=== PATIENT | male | born 1995 | race Caucasian/White ===

== ENCOUNTER 2016-03-23 11:05 | Emergency (ER) | payer SELFPAY | END 2016-03-23 14:02 | disposition left against medical advice (07) | LOC: D.ER 11:05 | DX: K59.00 Constipation, unspecified (principal) ==

== ENCOUNTER 2017-08-12 16:20 | Emergency (ER) | payer SELFPAY ==
[~2017-08-12] VITALS: Ht 170.2 cm; Wt 95.5 kg
[2017-08-12 16:41] VITALS: Ht 170.2 cm; Wt 95.5 kg
[2017-08-12] MEDS ORDERED: HYDROCODON-ACE1 EAC7 PO (18:01)
[2017-08-12 18:24] VITALS: BP 136/68
== END 2017-08-12 18:26 | disposition home or self-care (01) ==
LOC: D.ER 16:20
DX: S93.402A Sprain of unspecified ligament of left ankle, initial encounter (principal); X50.1XXA Overexertion from prolonged static or awkward postures, initial encounter; Y93.89 Activity, other specified; Y92.019 Unspecified place in single-family (private) house as the place of occurrence of the external cause

== ENCOUNTER 2018-03-29 22:14 | Inpatient (IN) | payer MEDICAID ==
[~2018-03-29] VITALS: Ht 170.2 cm; Wt 81.8 kg
--- NOTE | 2018-03-29 01:10 | NUR ---
RECIEVED PT FROM ER VIA HOSPITAL BED V/S WNL , PT ON RA NO IV AT THIS TIME FAMILY @BEDSIDE CL ASSESSMENT DONE CL IN REACH WILL CONT TO MONITOR
[~2018-03-29 22:14] MED LIST: HYDROCODON-ACE1 EAC7 PO
[2018-03-29] MEDS ORDERED: ELIQUIS5 MG PO (22:24)
[2018-03-29 22:52] LABS: BASOPHILS 0.2 % (0-2); HEMOGLOBIN 15.5 g/dL (13.5-17.5); IMMATURE GRANULOCYTES 0.2 % (0-5); LYMPHOCYTES 29.3 % (15-50); MCH 31.3 pg (26.0-34.0); MCHC 35.2 g/dL (31.0-37.0); MCV 88.7 fL (80.0-100.0); MEAN PLATELET VOLUME 9.6 fL (7.4-10.4); NEUTROPHILS 61.3 % (40-80); PLATELET COUNT 306 10x3/uL (130-400); RBC 4.96 10x6/uL (4.20-6.10); RDW 12.3 % (11.5-14.5); WBC 12.4 10x3/uL (4.8-10.8)
[2018-03-29 23:02] LABS: APTT 36.2 SECONDS (22.8-39.4); INR 1.23 (0.85-1.17)
[2018-03-29 23:06] LABS: ALBUMIN 3.7 g/dL (3.4-5.0); ALKALINE PHOSPHATASE 115 U/L (46-116); ALT (SGPT) 17 U/L (10-68); BILIRUBIN - TOTAL 0.91 mg/dL (0.2-1.3); CALC OSMOLALITY 278 mosm/kg (275-300); CALCIUM 8.7 mg/dL (8.5-10.1); CARBON DIOXIDE 24.6 mmol/L (21.0-32.0); CHLORIDE - SERUM 104 mmol/L (98-107); CREATININE - SERUM 0.8 mg/dL (0.6-1.3); GLUCOSE 107 mg/dL (74-106); POTASSIUM - SERUM 3.9 mmol/L (3.5-5.1); PROTEIN - SERUM 7.6 g/dL (6.4-8.2); SODIUM 140 mmol/L (136-145); UREA NITROGEN 13 mg/dL (7-18); eGFR NON AFRICAN AMERICAN > 90 mL/min (90-120)
[2018-03-29 23:50] VITALS: BP 133/73
[2018-03-30] VITALS (8 sets, daily range): BP systolic 103–138; BP diastolic 67–80; Ht 170.2 cm; Wt 81.8 kg
--- NOTE | 2018-03-30 01:23 | NUR ---
TECHNICAL TRAINING COORDINATOR ASSESSMENT COMPLETED. VSS. SR PER CM HR 83. NO IV. LUNGS CTA. PALPABLE PERIPHERAL PULSES. NO INCREASED TEMP TO BACK OF R LEG. STATES PAIN NOW 5/10. INFORMED BEDREST FOR ACTIVITY. STATED UNDERSTANDING. SR UP X2, CALL LIGHT WITHIN REACH.
--- NOTE | 2018-03-30 04:30 | NUR ---
ND C/O OF PAIN IN LEG CALL HOT METAL MIXER OPERATOR HELPER ER DOCTOR FRANSISCO HE ORDER MORPHINE 4MG IV Q4 HRS PRN , ZOFRAN 4MG IV Q4HRS PRN , ORDERS IN MEDS GIVEN PT TOLERATED WELL CL IN REACH WILL CONT TO MONITOR ,IV IN RT WRIST 20N GAUGE
--- NOTE | 2018-03-30 07:00 | NUR ---
RECEIVED BEDSIDE SHIFT REPORT. ASSUMED CARE OF PATIENT. PATIENT RESTING IN BED WITH EYES CLOSED, EASILY AROUSED. CALL LIGHT WITHIN REACH. PATIENT WITH FEMALE VISITOR RESTING WITH EYES CLOSED IN BED WITH PATIENT. NO DISTRESS. SB, HEARTRATE 58 ON TELEMETRY.
--- NOTE | 2018-03-30 07:49 | NUR ---
PATIENT REQUESTING PAIN MEDICATION, TOO EARLY TO ADMINISTER. EXPLAIN TO PATIENT THAT PAIN MEDICATION NOT AVAILABLE UNTIL 0900. PATIENT VERBALIZED HIS UNDERSTANDING.
--- NOTE | 2018-03-30 09:05 | NUR ---
MEDICATED FOR PAIN AT THIS TIME.
--- NOTE | 2018-03-30 09:43 | NUR ---
MARKO ESPARZA PAGED TO QUESTION ABOUT SENDING CONSULT FOR . PATIENT WAS TOLD THAT A BLOOD SPECIALIST WOULD COME IN AND REVIEW HIS LAB TEST TO SEE HOW WE WILL KEEP PATIENT FROM GETTING CLOTS. EXPLAINED TO ISAIAS THAT IR WAS CONSULTED BUT NOT . RECEIVED NEW ORDERS FOR CONSULT.
--- NOTE | 2018-03-30 11:45 | NUR ---
PATIENT RESTING IN BED WITH EYES OPEN. CALL LIGHT WITHIN REACH. PATIENT WITH MALE VISITOR AT BEDSIDE. NO DISTRESS. DENIES NEEDS AT THIS TIME.
--- NOTE | 2018-03-30 14:46 | NUR ---
MEDICATED FOR PAIN AT THIS TIME. NO DISTRESS.
--- NOTE | 2018-03-30 19:30 | NUR ---
RECEIVED REPORT, WILL ASSUME CARE OF PT, PT IS EATING A STEAK AND BAKED POT, DENIES ANY NEEDS AT THIS TIME, BED IS LOW, SRX2, CALL LIGHT IN REACH, WILL CONTINUE PLAN OF CARE
--- NOTE | 2018-03-30 20:14 | NUR ---
PT COMPLAINS OF PAIN, GAVE MORHINE ORDER
[2018-03-31 03:55] VITALS: BP 107/55
--- NOTE | 2018-03-31 04:44 | NUR ---
ASSESSMENT PER ICT SALES REPRESENTATIVE REVIEWED AND THIS RN IN AGREEMENT. MONITOR AND CPOC.
[2018-03-31 04:46] LABS: BASOPHILS 0.3 % (0-2); EOSINOPHILS 2.9 % (0-7); HEMATOCRIT 42.2 % (42.0-54.0); HEMOGLOBIN 14.3 g/dL (13.5-17.5); IMMATURE GRANULOCYTES 0.1 % (0-5); LYMPHOCYTES 39.6 % (15-50); MCH 30.6 pg (26.0-34.0); MCHC 33.9 g/dL (31.0-37.0); MCV 90.2 fL (80.0-100.0); MEAN PLATELET VOLUME 9.7 fL (7.4-10.4); MONOCYTES 7.1 % (2-11); PLATELET COUNT 284 10x3/uL (130-400); RBC 4.68 10x6/uL (4.20-6.10); RDW 12.5 % (11.5-14.5)
[2018-03-31 05:12] LABS: ALBUMIN 3.5 g/dL (3.4-5.0); ALKALINE PHOSPHATASE 91 U/L (46-116); ALT (SGPT) 18 U/L (10-68); BILIRUBIN - TOTAL 0.72 mg/dL (0.2-1.3); CALC OSMOLALITY 281 mosm/kg (275-300); CARBON DIOXIDE 25.1 mmol/L (21.0-32.0); CHLORIDE - SERUM 105 mmol/L (98-107); CREATININE - SERUM 0.7 mg/dL (0.6-1.3); GLUCOSE 96 mg/dL (74-106); POTASSIUM - SERUM 4.2 mmol/L (3.5-5.1); PROTEIN - SERUM 6.7 g/dL (6.4-8.2); SODIUM 141 mmol/L (136-145); UREA NITROGEN 16 mg/dL (7-18); eGFR NON AFRICAN AMERICAN > 90 mL/min (90-120)
--- NOTE | 2018-03-31 07:15 | NUR ---
RECEIVED BEDSIDE SHIFT REPORT. ASSUMED CARE OF PATIENT. CALL LIGHT WITHIN REACH. RESP EVEN AND UNLABORED. FEMALE VISITOR RESTING IN BED WITH PATIENT. NO DISTRESS.
--- NOTE | 2018-03-31 07:39 | NUR ---
SCD'S NOT APPLIED ORDERED DUE TO CONTRAINDICATED WITH DVT AND PATIENT IS ON LOVENOX AT THIS TIME.
[2018-03-31 08:50] VITALS: BP 120/82
--- NOTE | 2018-03-31 11:55 | NUR ---
RESTING IN BED, FEMALE VISITOR AT BEDSIDE. NO DISTRESS. FRESH ICE WATER PROVIDED. CALL LIGHT WITHIN REACH.
[2018-03-31 12:21] VITALS: BP 126/76
--- NOTE | 2018-03-31 13:51 | MORECARE ---
CASE MANAGEMENT DISCHARGE SUMMARY PATIENT: ANNAMARIE DESAI UNIT: [id number] ADM DATE: 03/30/18 AGE: 23 : 94 SEX: M ROOM/BED: D.2113 AUTHOR: ARIEL OLIVAREZ PHYSICIAN: REFERRING PHYSICIAN: AUSTEN SINGH MD DATE OF SERVICE: 03/31/18 Discharge Plan Patient Name: ANNAMARIE DESAI [facility] : 1995 Planned Disposition: Anticipated Discharge Date: Discharge Date: Expected LOS: Initial Reviewer: [id number] Initial Review Date: 03/31/2018 Generated: 03/31/18 2:51 pm DCPIA - Discharge Planning Initial Assessment Updated by [email or web address]: Karoline Jamil on 03/31/18 1:49 pm * Is the patient Alert and Oriented? Yes * PCP NONE * Pharmacy [facility] [address] * Preadmission Environment Home with Family * ADLs Independent * Equipment Walker Wheelchair * List name and contact numbers for known caregivers / representatives who currently or will assist patient after discharge: RODRICK STEWART, AUNT, OR HER WORK NUMBER IS [phone] * Verbal permission to speak to the caregivers and representatives has been obtained from the patient. Yes * Community resources currently utilized None * Additional services required to return to the preadmission environment? Yes * Can the patient safely return to the preadmission environment? Yes * Has this patient been hospitalized within the prior 30 days at any hospital? No Patient Name: ANNAMARIE DESAI Page 41500 at 1351 All edits/amendments must be made on the electronic document DICTATION DATE: 03/31/18 1351 SOFT WORK WRAPPER LAYER AND EXAMINER: BANG 03/31/18 1351 RPT#: [id number] DC DATE: STATUS: ADM IN [facility] [address] [place] [address] END OF REPORT
--- NOTE | 2018-03-31 14:14 | MORECARE ---
CASE MANAGEMENT DISCHARGE SUMMARY PATIENT: ANNAMARIE DESAI UNIT: [id number] ADM DATE: 03/30/18 AGE: 23 : 94 SEX: M ROOM/BED: D.2113 AUTHOR: JUANISDOC PHYSICIAN: REFERRING PHYSICIAN: AUSTEN SINGH MD DATE OF SERVICE: 03/31/18 Discharge Plan Patient Name: ANNAMARIE DESAI Facility: [facility]:[place] : 1995 Planned Disposition: Anticipated Discharge Date: Discharge Date: Expected LOS: Initial Reviewer: [email or web address] Initial Review Date: 03/31/2018 Generated: 03/31/18 3:14 pm DCPIA - Discharge Planning Initial Assessment Updated by [email or web address]: Karoline Jamil on 03/31/18 1:49 pm * Is the patient Alert and Oriented? Yes * PCP NONE * Pharmacy [facility] [address] * Preadmission Environment Home with Family * ADLs Independent * Equipment Walker Wheelchair * List name and contact numbers for known caregivers / representatives who currently or will assist patient after discharge: AUNT BARRETT, OR HER WORK NUMBER IS [phone] * Verbal permission to speak to the caregivers and representatives has been obtained from the patient. Yes * Community resources currently utilized None * Additional services required to return to the preadmission environment? Yes * Can the patient safely return to the preadmission environment? Yes * Has this patient been hospitalized within the prior 30 days at any hospital? No External Providers External Provider: [facility] Next Contact Date: Service Request Date: Service Type: Resolution: Reviewer: Comments: External Provider: [facility] Next Contact Date: Service Request Date: Service Type: Resolution: Reviewer: Comments: Coverage Notice Reviewer: [id number] - Karoline Jamil Notice Issued Date-Time: 03/31/2018 14:11 Notice Type: Patient Choice Letter Notice Delivered To: Family Member Relationship to Patient: Aunt Concrete Technician Name: RODRICK STEWART Delivery Method: HAND - Hand Delivered Sweta Days: Prior Verbal Notification: Recipient Understood Notice: Yes Recipient Signature: Yes Med Rec Note Co-signed by Attending: Coverage Notice Comment: [facility] PATIENT. Last DP export: 03/31/18 12:51 p Patient Name: ANNAMARIE DESAI Page 67050 at 1414 All edits/amendments must be made on the electronic document DICTATION DATE: 03/31/181413 CHIP MIXING MACHINE OPERATOR: BANG 03/31/181413 RPT#: [id number] DC DATE: STATUS: ADM IN [facility] [address] [place] [address] END OF REPORT
--- NOTE | 2018-03-31 14:22 | MORECARE ---
CASE MANAGEMENT DISCHARGE SUMMARY PATIENT: ANNAMARIE DESAI UNIT: [id number] ADM DATE: 03/30/18 AGE: 23 : 94 SEX: M ROOM/BED: D.2113 AUTHOR: JUANIS,DOC PHYSICIAN: REFERRING PHYSICIAN: AUSTEN SINGH MD DATE OF SERVICE: 03/31/18 Discharge Plan Patient Name: ANNAMARIE DESAI Facility: [facility]:[place] : 1995 Planned Disposition: Anticipated Discharge Date: Discharge Date: Expected LOS: Initial Reviewer: [email or web address] Initial Review Date: 03/31/2018 Generated: 03/31/18 3:21 pm Comments DCP- Discharge Planning Updated by [email or web address]: Karoline Jamil on 03/31/18 1:[address] Patient Name: ANNAMARIE DESAI Admission Status: ER Accout number: [id number] Admission Date: 03-30-2018 : 1995 Admission Diagnosis: Attending: AUSTEN SINGH Current LOS: 1 Anticipated DC Date: Planned Disposition: Primary Insurance: MEDICAID [place] Discharge Planning Comments: CM MET WITH PATIENT AND HIS AUNT RODRICK STEWART WHO HE LIVES WITH ABOUT DC PLANNING NEEDS. STATES HE JUST GOT ON MEDICAID AND DOESN'T HAVE A PCP YET, IS HOPING TO GET IN WITH DR. STONE. PATIENT STATES HAS WALKER AND WC AT HOME BUT NEEDS A SHOWER CHAIR. ALSO STATES NEEDS HH. PATIENT CHOICE FORM COMPLETED, PATIENT [facility]OSE [facility] 1ST, [facility] 2ND. [facility]OSE [facility] 1ST AND [facility] 2ND. CM SPOKE WITH DR. CONDON AND SHE WANTS US TO HELP HIM TO GET LOVENOX 80MG BID FOR 10 DOSES. I CALLED [facility] [address] BUT THEY COULDN'T TELL ME IF IT WAS COVERED BY MEDICAID UNTIL THEY HAD THE PRESCRIPTION. HIS AUNT RODRICK SAID IF WE NEEDED TO TALK TO HER TOMORROW TO CALL HER ON HER WORK PHONE AT [phone], AND HER CELL IS [phone]. ALSO, PHARMACY TOLD ME MEDICAID COULD TELL ME IF ITS COVERED BUT THEY ARE CLOSED TODAY. CM TO FOLLOW AND ASSIST NEEDED WITH DC PLANNING/NEEDS. UNSURE OF HIS DC DATE. Funds Development Director: Karoline Jamil DCPIA - Discharge Planning Initial Assessment Updated by [email or web address]: Karoline Loulou on 03/31/18 1:49 pm * Is the patient Alert and Oriented? Yes * PCP NONE * Pharmacy [facility] [address] * Preadmission Environment Home with Family * ADLs Independent * Equipment Walker Wheelchair * List name and contact numbers for known caregivers / representatives who currently or will assist patient after discharge: RODRICK STEWART, NOELT, OR HER WORK NUMBER IS [phone] * Verbal permission to speak to the caregivers and representatives has been obtained from the patient. Yes * Community resources currently utilized None * Additional services required to return to the preadmission environment? Yes * Can the patient safely return to the preadmission environment? Yes * Has this patient been hospitalized within the prior 30 days at any hospital? No Coverage Notice Reviewer: [id number] - Karoline Loulou Notice Issued Date-Time: 03/31/2018 14:11 Notice Type: Patient Choice Letter Notice Delivered To: Family Member Relationship to Patient: Aunt Crib Attendant Name: RODRICK STEWART Delivery Method: HAND - Hand Delivered Sweta Days: Prior Verbal Notification: Recipient Understood Notice: Yes Recipient Signature: Yes Med Rec Note Co-signed by Attending: Coverage Notice Comment: [facility] PATIENT. Last DP export: 03/31/18 1:14 p Patient Name: ANNAMARIE DESAI Page 47869 at 1422 All edits/amendments must be made on the electronic document DICTATION DATE: 03/31/181420 HAND MOUNTER: BANG 03/31/18 142 RPT#: [id number] DC DATE: STATUS: ADM IN [facility] [address] [place] [address] END OF REPORT
--- NOTE | 2018-03-31 14:49 | NUR ---
PATIENT RESTING IN BED. FAMILY AT BEDSIDE. FRESH ICE WATER PROVIDED. CALL LIGHT WITHIN REACH. DENIES NEEDS AT THIS TIME. NO DISTRESS.
[2018-03-31 15:48] VITALS: BP 121/74
--- NOTE | 2018-03-31 18:30 | NUR ---
RESTING IN BED. NO DISTRESS. CALL LIGHT WITHIN REACH.
--- NOTE | 2018-03-31 19:30 | NUR ---
RECEIVED REPORT, WILL ASSUME CARE OF PT, PT IS GETTING READY TO GET IN SHOWER, DENIES ANY NEEDS AT THIS TIME, WILL CONTINUE PLAN OF CARE
[2018-03-31 19:55] VITALS: BP 163/93
--- NOTE | 2018-03-31 21:40 | NUR ---
COMPLAINS OF LEG PAIN, GAVE MORPHINE ORDER
[2018-03-31 23:50] VITALS: BP 129/76
[2018-04-01 03:43] VITALS: BP 124/71
--- NOTE | 2018-04-01 04:06 | NUR ---
REVIEW AND AGREEMENT WITH ASSESSMENT PER CHANNEL CEMENTER OUTSOLE MACHINE. PT RESTING IN BED WITH NO DISTRESS. MONITOR AND CPOC.
[2018-04-01 06:07] LABS: ALBUMIN 3.4 g/dL (3.4-5.0); ALKALINE PHOSPHATASE 96 U/L (46-116); ALT (SGPT) 15 U/L (10-68); BILIRUBIN - TOTAL 0.67 mg/dL (0.2-1.3); CALCIUM 8.8 mg/dL (8.5-10.1); CARBON DIOXIDE 24.9 mmol/L (21.0-32.0); CREATININE - SERUM 0.7 mg/dL (0.6-1.3); GLUCOSE 98 mg/dL (74-106); UREA NITROGEN 12 mg/dL (7-18); eGFR NON AFRICAN AMERICAN > 90 mL/min (90-120)
[2018-04-01 06:17] LABS: CALC OSMOLALITY 278 mosm/kg (275-300); CHLORIDE - SERUM 104 mmol/L (98-107); SODIUM 140 mmol/L (136-145)
[2018-04-01 06:40] LABS: POTASSIUM - SERUM 3.4 mmol/L (3.5-5.1)
[2018-04-01 07:42] LABS: BASOPHILS 0.3 % (0-2); EOSINOPHILS 2.5 % (0-7); HEMATOCRIT 41.8 % (42.0-54.0); HEMOGLOBIN 14.3 g/dL (13.5-17.5); IMMATURE GRANULOCYTES 0.1 % (0-5); LYMPHOCYTES 40.8 % (15-50); MCH 30.4 pg (26.0-34.0); MCHC 34.2 g/dL (31.0-37.0); MCV 88.7 fL (80.0-100.0); MONOCYTES 8.6 % (2-11); NEUTROPHILS 47.7 % (40-80); PLATELET COUNT 322 10x3/uL (130-400); RBC 4.71 10x6/uL (4.20-6.10); RDW 12.1 % (11.5-14.5); WBC 8.7 10x3/uL (4.8-10.8)
--- NOTE | 2018-04-01 07:52 | NUR ---
AM ROUNDS- PT RESTING COMFORTABLY IN BED, EASILY AROUSES TO VOICE. PT A/O X4, RESP EVEN AND NONLABORED ON RA. LT WRIST IV SL. PT DENIES ANY NEEDS AT THIS TIEM. CALL LIGHT IN REACH, NAD NOTED, WILL CONTINUE PLAN OF CARE.
[2018-04-01 08:27] VITALS: BP 120/78
[2018-04-01 11:10] LABS: INR 1.11 (0.85-1.17); PROTIME 13.8 SECONDS (11.6-15.0)
--- NOTE | 2018-04-01 11:27 | NUR ---
LOVENOX GIVEN ORDERED, ALSO GAVE 40MEQ OF K FOR LOW K OF 3.4. PT RESTING COMFORTABLY IN BED, DENIES ANY NEEDS AT THIS TIME. CALL LIGHT IN REACH, GIRLFRIEND IN THE BED WITH PT, NAD NOTED, CALL LIGHT IN REACH.
--- NOTE | 2018-04-01 11:36 | MORECARE ---
CASE MANAGEMENT DISCHARGE SUMMARY PATIENT: ANNAMARIE DESAI UNIT: [id number] ADM DATE: 03/30/18 AGE: 23 : [birth year] SEX: M ROOM/BED: D.2113 AUTHOR: JUANIS,DOC PHYSICIAN: REFERRING PHYSICIAN: AUSTEN SINGH MD DATE OF SERVICE: 04/01/18 Discharge Plan Patient Name: ANNAMARIE DESAI Facility: [facility]:[place] : 1995 Planned Disposition: Anticipated Discharge Date: Discharge Date: Expected LOS: Initial Reviewer: [email or web address] Initial Review Date: 03/31/2018 Generated: 04/01/18 12:36 pm Comments DCP- Discharge Planning Updated by [email or web address]: Nahid Mercedes on 04/01/18 10:[address] Patient Name: ANNAMARIE DESAI Encounter No: [id number] : 1995 Primary Insurance: MEDICAID [place] Anticipated DC Date: Planned Disposition: External Planned Provider: : DCP follow-up note: CM RECEIVED ORDER TO SEE IF PT CAN BE SEEN AT [facility] FOR LAB DRAWS, PRIMARY CARE AND COUMADIN MONITORING. CM CALLED [facility], LEFT DETAILED MESSAGE FOR [facility] DEPARTMENT AT [phone]. CM WAITING RETURN CALL FROM [facility], [place]. ERON Corona DCP- Discharge Planning Updated by [email or web address]: Karoline Jamil on 03/31/18 1:[address] Patient Name: ANNAMARIE DESAI Admission Status: ER Accout number: [id number] Admission Date: 03-30-2018 : 1995 Admission Diagnosis: Attending: AUSTEN SINGH Current LOS: 1 Anticipated DC Date: Planned Disposition: Primary Insurance: MEDICAID [place] Discharge Planning Comments: CM MET WITH PATIENT AND HIS AUNT RODRICK STEWART WHO HE LIVES WITH ABOUT DC PLANNING NEEDS. STATES HE JUST GOT ON MEDICAID AND DOESN'T HAVE A PCP YET, IS HOPING TO GET IN WITH DR. STONE. PATIENT STATES HAS WALKER AND WC AT HOME BUT NEEDS A SHOWER CHAIR. ALSO STATES NEEDS HH. PATIENT CHOICE FORM COMPLETED, PATIENT [facility]OSE [facility] 1ST, [facility] 2ND. CHOSE [facility] 1ST AND [facility] 2ND. CM SPOKE WITH DR. CONDON AND SHE WANTS US TO HELP HIM TO GET LOVENOX 80MG BID FOR 10 DOSES. I CALLED [facility] [address] BUT THEY COULDN'T TELL ME IF IT WAS COVERED BY MEDICAID UNTIL THEY HAD THE PRESCRIPTION. HIS AUNT RODRICK SAID IF WE NEEDED TO TALK TO HER TOMORROW TO CALL HER ON HER WORK PHONE AT [phone], AND HER CELL IS [phone]. ALSO, PHARMACY TOLD ME MEDICAID COULD TELL ME IF ITS COVERED BUT THEY ARE CLOSED TODAY. CM TO FOLLOW AND ASSIST NEEDED WITH DC PLANNING/NEEDS. UNSURE OF HIS DC DATE. Home Mortgage Disclosure Act Specialist: Karoline Jamil DCPIA - Discharge Planning Initial Assessment Updated by [email or web address]: Karoline Jamil on 03/31/18 1:49 pm * Is the patient Alert and Oriented? Yes * PCP NONE * [facility] [address] * Preadmission Environment Home with Family * ADLs Independent * Equipment Walker Wheelchair * List name and contact numbers for known caregivers / representatives who currently or will assist patient after discharge: RODRICK STEWART AUNKamille, OR HER WORK NUMBER IS [phone] * Verbal permission to speak to the caregivers and representatives has been obtained from the patient. Yes * Community resources currently utilized None * Additional services required to return to the preadmission environment? Yes * Can the patient safely return to the preadmission environment? Yes * Has this patient been hospitalized within the prior 30 days at any hospital? No Coverage Notice Reviewer: [id number] - Karoline Jamil Notice Issued Date-Time: 03/31/2018 14:11 Notice Type: Patient Choice Letter Notice Delivered To: Family Member Relationship to Patient: Aunt Deputy Sheriff/Investigator Name: RODRICK STEWART Delivery Method: HAND - Hand Delivered Sweta Days: Prior Verbal Notification: Recipient Understood Notice: Yes Recipient Signature: Yes Med Rec Note Co-signed by Attending: Coverage Notice Comment: [facility] PATIENT. Last DP export: 03/31/18 1:21 p Patient Name: ANNAMARIE DESAI Page 08393 at 1136 All edits/amendments must be made on the electronic document DICTATION DATE: 04/01/18 1136 LOGISTICS SUPPLY OFFICER: BANG 04/01/18 1136 RPT#: [id number] DC DATE: STATUS: ADM IN [facility] [address] [place] [address] END OF REPORT
[2018-04-01 13:34] VITALS: BP 135/86
--- NOTE | 2018-04-01 15:50 | NUR ---
PT HAD HEART MONITOR OFF, STATED THAT HE WAS TOLD THAT HE WOULD BE D/C TODAY. INFORMED PT THAT WE WERE STILL WAITING TO SEE IF [facility] COULD DO BLOOD DRAWS FOR PT TO CHECK INR LEVEL. INFOMRED PT THAT I WOULD PROBABLY BE TOMORROW BEFORE HE IS DISCHARGE. PT REFUSED TO PUT HEART MONITOR BACK ON. MONITOR TAKEN TO COMBUSTION ANALYST, WANDA.
--- NOTE | 2018-04-01 16:53 | MORECARE ---
CASE MANAGEMENT DISCHARGE SUMMARY PATIENT: ANNAMARIE DESAI UNIT: [id number] ADM DATE: 03/30/18 AGE: 23 : [birth year] SEX: M ROOM/BED: D.2113 AUTHOR: JUANIS,DOC PHYSICIAN: REFERRING PHYSICIAN: AUSTEN SINGH MD DATE OF SERVICE: 04/01/18 Discharge Plan Patient Name: ANNAMARIE DESAI Facility: [facility]:[place] : 1995 Planned Disposition: Anticipated Discharge Date: Discharge Date: Expected LOS: Initial Reviewer: [email or web address] Initial Review Date: 03/31/2018 Generated: 04/01/18 5:53 pm Comments DCP- Discharge Planning Updated by [email or web address]: Nahid Barrios on 04/01/18 3:[address] Patient Name: ANNAMARIE DESAI Encounter No: [id number] : 1995 Primary Insurance: MEDICAID [place] Anticipated DC Date: Planned Disposition: External Planned Provider: : DCP follow-up note: CM RECEIVED ORDER TO SEE IF PT CAN BE SEEN AT [facility] FOR LAB DRAWS, PRIMARY CARE AND COUMADIN MONITORING. CM CALLED [facility], LEFT DETAILED MESSAGE FOR [facility] OF REFERRALS DEPARTMENT AT [phone]. CM WAITING RETURN CALL FROM [facility]. Nahid Barrios, CASE MANAGEMENT Appended by Nahid Barrios on 04/01/2018 16:48 INJECTION MAINTENANCE TECHNICIAN: CM CALLED [facility], , SPOKE TO RECEPTIONISTS [facility] DID NOT RETURN CM CALL; RECEPTIONISTS INFORMED CM THAT PT WILL NEED TO HAVE [facility] ASSIGNED BY DEPARTMENT OF HUMAN SERVICES BEFORE ANY ARRANGEMENTS CAN BE MADE WITH THEM. CM CALLED [facility], . AFTER VERY LENGHTY HOLD, THE LINE WAS DISCONNECTED. CM MET WITH PT IN ROOM, PROVIDED UPDATE, CALLED [facility], ; AFTER VERY LENGHTY HOLD, THE LINE WAS DISCONNECTED.CM WENT ONLINE TO [facility] AND ASSIGNED PT'S DOCTOR [facility] [place] [facility] WEBS[facility] MESSAGE STATES THAT THE ASSIGNMENT CAN TAKE UP TO THREE DAYS TO TAKE AFFECT AND TO CALL [facility] IF PT NEEDS TO SEE PRIMARY CARE SOONER. CM NOTIFIED PT WHO WILL CALL HIMSELF. CM CALLED [facility], THREE MORE TIMES, AFTER VERY LENGHTY HOLDS, THE LINE WAS DISCONNECTED TWICE AND THE THIRD TIME WAS FOR APPROXIMATELY 4O MINUTES WITH ONLY PIANO MUSIC AND NO CHIEF OF VITAL STATISTICS. CM WILL CALL [facility] AGAIN TOMORROW TO FIND OUT IF THE PCP ASSIGNMENT WENT THROUGH THE [facility] WEBSITE. NAHID BARRIOS, CASE MANAGEMENT DCP- Discharge Planning Updated by [id number]: Karoline Jamil on 03/31/18 1:[address] Patient Name: ANNAMARIE DESAI Admission Status: ER Accout number: [id number] Admission Date: 03-30-2018 : 1995 Admission Diagnosis: Attending: AUSTEN SINGH Current LOS: 1 Anticipated DC Date: Planned Disposition: Primary Insurance: MEDICAID [place] Discharge Planning Comments: CM MET WITH PATIENT AND HIS AUNT RODRICK STEWART WHO HE LIVES WITH ABOUT DC PLANNING NEEDS. STATES HE JUST GOT ON MEDICAID AND DOESN'T HAVE A PCP YET, IS HOPING TO GET IN WITH DR. STONE. PATIENT STATES HAS WALKER AND WC AT HOME BUT NEEDS A SHOWER CHAIR. ALSO STATES NEEDS HH. PATIENT CHOICE FORM COMPLETED, PATIENT [facility]OSE [facility] 1ST, [facility] 2ND. CHOSE [facility] 1ST AND [facility] 2ND. CM SPOKE WITH DR. CONDON AND SHE WANTS US TO HELP HIM TO GET LOVENOX 80MG BID FOR 10 DOSES. I CALLED [facility] [address] BUT THEY COULDN'T TELL ME IF IT WAS COVERED BY MEDICAID UNTIL THEY HAD THE PRESCRIPTION. HIS AUNT RODRICK SAID IF WE NEEDED TO TALK TO HER TOMORROW TO CALL HER ON HER WORK PHONE AT [phone], AND HER CELL IS [phone]. ALSO, PHARMACY TOLD ME MEDICAID COULD TELL ME IF ITS COVERED BUT THEY ARE CLOSED TODAY. CM TO FOLLOW AND ASSIST NEEDED WITH DC PLANNING/NEEDS. UNSURE OF HIS DC DATE. Records Management Specialist: Karoline Jamil DCPIA - Discharge Planning Initial Assessment Updated by [email or web address]: Karoline Jamil on 03/31/18 1:49 pm * Is the patient Alert and Oriented? Yes * PCP NONE * Pharmacy [facility] [address] * Preadmission Environment Home with Family * ADLs Independent * Equipment Walker Wheelchair * List name and contact numbers for known caregivers / representatives who currently or will assist patient after discharge: AUNT BARRETT, OR HER WORK NUMBER IS [phone] * Verbal permission to speak to the caregivers and representatives has been obtained from the patient. Yes * Community resources currently utilized None * Additional services required to return to the preadmission environment? Yes * Can the patient safely return to the preadmission environment? Yes * Has this patient been hospitalized within the prior 30 days at any hospital? No Coverage Notice Reviewer: [id number] Laura Jamil Notice Issued Date-Time: 03/31/2018 14:11 Notice Type: Patient Choice Letter Notice Delivered To: Family Member Relationship to Patient: Aunt Marble Installer Name: RODRICK STEWART Delivery Method: HAND - Hand Delivered Sweta Days: Prior Verbal Notification: Recipient Understood Notice: Yes Recipient Signature: Yes Med Rec Note Co-signed by Attending: Coverage Notice Comment: [facility] [place] PATIENT. Last DP export: 04/01/18 10:36 a Patient Name: ANNAMARIE DESAI Page 14671 at 1653 All edits/amendments must be made on the electronic document DICTATION DATE: 04/01/181651 FARM INSTRUCTOR: BANG 04/01/181651 RPT#: [id number] DC DATE: STATUS: ADM IN [facility] [address] [place] [address] END OF REPORT
--- NOTE | 2018-04-01 19:20 | NUR ---
RECEIVED REPORT, WILL ASSUME CARE OF PT, PT DENIES ANY NEEDS AT THIS TIME, BED IS LOW, SRX2, CALL LIGHT IN REACH
[2018-04-01 21:43] VITALS: BP 133/78
[2018-04-02 01:07] VITALS: BP 123/74
[2018-04-02 05:56] LABS: INR 1.07 (0.85-1.17); PROTIME 13.4 SECONDS (11.6-15.0)
[2018-04-02 05:57] VITALS: BP 118/72
[2018-04-02 06:07] LABS: ALBUMIN 3.5 g/dL (3.4-5.0); ALKALINE PHOSPHATASE 100 U/L (46-116); BILIRUBIN - TOTAL 0.67 mg/dL (0.2-1.3); CALC OSMOLALITY 276 mosm/kg (275-300); CARBON DIOXIDE 25.4 mmol/L (21.0-32.0); CHLORIDE - SERUM 102 mmol/L (98-107); CREATININE - SERUM 0.6 mg/dL (0.6-1.3); GLUCOSE 89 mg/dL (74-106); POTASSIUM - SERUM 3.7 mmol/L (3.5-5.1); PROTEIN - SERUM 7.2 g/dL (6.4-8.2); SODIUM 140 mmol/L (136-145); UREA NITROGEN 11 mg/dL (7-18); eGFR NON AFRICAN AMERICAN > 90 mL/min (90-120)
[2018-04-02 06:09] LABS: ALT (SGPT) 32 U/L (10-68)
--- NOTE | 2018-04-02 07:12 | NUR ---
RECEIVED BEDSIDE SHIFT REPORT. ASSUMED CARE OF PATIENT. CALL LIGHT WITHIN REACH. PATIENT RESTING IN BED WITH EYES OPEN. OPTICAL INSTRUMENT ASSEMBLER AT BEDSIDE CHECKING VITAL SIGNS. PATIENT WITH FEMALE VISITOR IN THE BED. DENIES NEEDS AT THIS TIME. NO DISTRESS. HANDBAG FINISHER NURSE REPORTS THAT PATIENT HAS BEEN LEAVING UNIT WITHOUT TELLING ANYONE.
[2018-04-02 08:19] VITALS: BP 140/78
[2018-04-02 08:29] LABS: BASOPHILS 0.6 % (0-2); EOSINOPHILS 3.5 % (0-7); HEMOGLOBIN 14.9 g/dL (13.5-17.5); IMMATURE GRANULOCYTES 0.1 % (0-5); LYMPHOCYTES 42.2 % (15-50); MCH 30.8 pg (26.0-34.0); MCHC 34.7 g/dL (31.0-37.0); MCV 88.8 fL (80.0-100.0); MEAN PLATELET VOLUME 10.2 fL (7.4-10.4); MONOCYTES 8.4 % (2-11); NEUTROPHILS 45.2 % (40-80); PLATELET COUNT 317 10x3/uL (130-400); RBC 4.84 10x6/uL (4.20-6.10); RDW 12.3 % (11.5-14.5); WBC 8.4 10x3/uL (4.8-10.8)
--- NOTE | 2018-04-02 11:25 | NUR ---
PATIENT LEFT UNIT VIA WHEELCHAIR. PATIENT FEMALE FRIEND PUSHING HIM AROUND UNIT TO GET OUT OF ROOM FOR A LITTLE WHILE. NO DISTRESS UPON LEAVING UNIT.
--- NOTE | 2018-04-02 12:12 | MORECARE ---
CASE MANAGEMENT DISCHARGE SUMMARY PATIENT: ANNAMARIE DESAI UNIT: [id number] ADM DATE: 03/30/18 AGE: 23 : [birth year] SEX: M ROOM/BED: D.2113 AUTHOR: JUANIS,DOC PHYSICIAN: REFERRING PHYSICIAN: AUSTEN SINGH MD DATE OF SERVICE: 04/02/18 Discharge Plan Patient Name: ANNAMARIE DESAI Facility: [facility]:[place] : 1995 Planned Disposition: Home Anticipated Discharge Date: 04/02/18 Discharge Date: Expected LOS: 3 Initial Reviewer: [id number] Initial Review Date: 03/31/2018 Generated: 04/02/18 1:12 pm Comments DCP- Discharge Planning Updated by [id number]: Nahid Barrios on 04/01/18 3:[address] Patient Name: ANNAMARIE DESAI Encounter No: [id number] : 1995 Primary Insurance: MEDICAID [place] Anticipated DC Date: Planned Disposition: External Planned Provider: : DCP follow-up note: CM RECEIVED ORDER TO SEE IF PT CAN BE SEEN AT [facility] FOR LAB DRAWS, PRIMARY CARE AND COUMADIN MONITORING. CM CALLED [employer], LEFT DETAILED MESSAGE FOR [facility] OF REFERRALS DEPARTMENT AT [phone]. CM WAITING RETURN CALL FROM [facility] [employer]. Nahid Barrios, CASE MANAGEMENT Appended by Nahid Barrios on 04/01/2018 16:48 UROLOGIST PHYSICIAN: CM CALLED [facility], , SPOKE TO RECEPTIONISTS [facility] DID NOT RETURN CM CALL; RECEPTIONISTS INFORMED CM THAT PT WILL NEED TO HAVE [facility] CLINIC ASSIGNED BY DEPARTMENT OF HUMAN SERVICES BEFORE ANY ARRANGEMENTS CAN BE MADE WITH THEM. CM CALLED [employer], . AFTER VERY LENGHTY HOLD, THE LINE WAS DISCONNECTED. CM MET WITH PT IN ROOM, PROVIDED UPDATE, CALLED [employer], ; AFTER VERY LENGHTY HOLD, THE LINE WAS DISCONNECTED.CM WENT ONLINE TO [facility] AND ASSIGNED PT'S DOCTOR HEALTY CONNECTIONS. [facility] WEBSITE MESSAGE STATES THAT THE ASSIGNMENT CAN TAKE UP TO THREE DAYS TO TAKE AFFECT AND TO CALL [facility] IF PT NEEDS TO SEE PRIMARY CARE SOONER. CM NOTIFIED PT WHO WILL CALL HIMSELF. CM CALLED [employer], THREE MORE TIMES, AFTER VERY LENGHTY HOLDS, THE LINE WAS DISCONNECTED TWICE AND THE THIRD TIME WAS FOR APPROXIMATELY 4O MINUTES WITH ONLY PIANO MUSIC AND NO INFORMATION SUPPORT PROJECT MANAGER. CM WILL CALL [employer] AGAIN TOMORROW TO FIND OUT IF THE PCP ASSIGNMENT WENT THROUGH THE [facility] WEBSITE. NAHID BARRIOS, CASE MANAGEMENT DCP- Discharge Planning Updated by [id number]: Karoline Jamil on 03/31/18 1:[address] Patient Name: ANNAMARIE DESAI Admission Status: ER Accout number: [id number] Admission Date: 03-30-2018 : 1995 Admission Diagnosis: Attending: AUSTEN SINGH Current LOS: 1 Anticipated DC Date: Planned Disposition: Primary Insurance: MEDICAID [place] Discharge Planning Comments: CM MET WITH PATIENT AND HIS AUNT RODRICK STEWART WHO HE LIVES WITH ABOUT DC PLANNING NEEDS. STATES HE JUST GOT ON MEDICAID AND DOESN'T HAVE A PCP YET, IS HOPING TO GET IN WITH DR. STONE. PATIENT STATES HAS WALKER AND WC AT HOME BUT NEEDS A SHOWER CHAIR. ALSO STATES NEEDS HH. PATIENT CHOICE FORM COMPLETED, PATIENT CHOSE [facility] 1ST, [facility] 2ND. CHOSE [facility] 1ST AND [facility] 2ND. CM SPOKE WITH DR. CONDON AND SHE WANTS US TO HELP HIM TO GET LOVENOX 80MG BID FOR 10 DOSES. I CALLED [facility] [address] BUT THEY COULDN'T TELL ME IF IT WAS COVERED BY MEDICAID UNTIL THEY HAD THE PRESCRIPTION. HIS AUNT RODRICK SAID IF WE NEEDED TO TALK TO HER TOMORROW TO CALL HER ON HER WORK PHONE AT [phone], AND HER CELL IS [phone]. ALSO, PHARMACY TOLD ME MEDICAID COULD TELL ME IF ITS COVERED BUT THEY ARE CLOSED TODAY. CM TO FOLLOW AND ASSIST NEEDED WITH DC PLANNING/NEEDS. UNSURE OF HIS DC DATE. Retail Zone Specialist: Karoline Jamil DCPIA - Discharge Planning Initial Assessment Updated by [id number]: Karoline Jamil on 03/31/18 1:49 pm * Is the patient Alert and Oriented? Yes * PCP NONE * Pharmacy [facility] [address] * Preadmission Environment Home with Family * ADLs Independent * Equipment Walker Wheelchair * List name and contact numbers for known caregivers / representatives who currently or will assist patient after discharge: AUNT BARRETT, OR HER WORK NUMBER IS [phone] * Verbal permission to speak to the caregivers and representatives has been obtained from the patient. Yes * Community resources currently utilized None * Additional services required to return to the preadmission environment? Yes * Can the patient safely return to the preadmission environment? Yes * Has this patient been hospitalized within the prior 30 days at any hospital? No Coverage Notice Reviewer: [id number] Laura Jamil Notice Issued Date-Time: 03/31/2018 14:11 Notice Type: Patient Choice Letter Notice Delivered To: Family Member Relationship to Patient: Aunt Hollow Handle Bench Worker Name: RODRICK STEWART Delivery Method: HAND - Hand Delivered Sweta Days: Prior Verbal Notification: Recipient Understood Notice: Yes Recipient Signature: Yes Med Rec Note Co-signed by Attending: Coverage Notice Comment: [facility], [facility] HOME PATIENT. Last DP export: 04/01/18 3:53 p Patient Name: ANNAMARIE DESAI Page [phone] at 1212 All edits/amendments must be made on the electronic document DICTATION DATE: 04/02/18 1211 INDUSTRIAL RELATIONS COUNSELOR: BANG 04/02/18 1211 RPT#: [id number] DC DATE: STATUS: ADM IN [facility] [address] [place] [address] END OF REPORT
--- NOTE | 2018-04-02 12:20 | MORECARE ---
CASE MANAGEMENT DISCHARGE SUMMARY PATIENT: ANNAMARIE DESAI UNIT: [id number] ADM DATE: 03/30/18 AGE: 23 : [birth year] SEX: M ROOM/BED: D.2113 AUTHOR: JUANIS,DOC PHYSICIAN: REFERRING PHYSICIAN: AUSTEN SINGH MD DATE OF SERVICE: 04/02/18 Discharge Plan Patient Name: ANNAMARIE DESAI Facility: [facility]:[place] : 1995 Planned Disposition: Home Anticipated Discharge Date: 04/02/18 Discharge Date: Expected LOS: 3 Initial Reviewer: [id number] Initial Review Date: 03/31/2018 Generated: 04/02/18 1:20 pm Comments DCP- Discharge Planning Updated by [id number]: Nahid Barrios on 04/01/18 3:[address] Patient Name: ANNAMARIE DESAI Encounter No: [id number] : 1995 Primary Insurance: [place]ID [place] Anticipated DC Date: Planned Disposition: External Planned Provider: : DCP follow-up note: CM RECEIVED ORDER TO SEE IF PT CAN BE SEEN AT [facility] FOR LAB DRAWS, PRIMARY CARE AND COUMADIN MONITORING. CM CALLED [employer], LEFT DETAILED MESSAGE FOR [facility] OF REFERRALS DEPARTMENT AT [phone]. CM WAITING RETURN CALL FROM [facility]. Nahid Barrios, CASE MANAGEMENT Appended by Nahid Barrios on 04/01/2018 16:48 ASSEMBLY MANAGER: CM CALLED [facility], , SPOKE TO RECEPTIONISTS [facility] DID NOT RETURN CM CALL; RECEPTIONISTS INFORMED CM THAT PT WILL NEED TO HAVE [facility] CONNECTIONS CLINIC ASSIGNED BY DEPARTMENT OF HUMAN SERVICES BEFORE ANY ARRANGEMENTS CAN BE MADE WITH THEM. CM CALLED [employer], . AFTER VERY LENGHTY HOLD, THE LINE WAS DISCONNECTED. CM MET WITH PT IN ROOM, PROVIDED UPDATE, CALLED [employer], ; AFTER VERY LENGHTY HOLD, THE LINE WAS DISCONNECTED.CM WENT ONLINE TO [facility] AND ASSIGNED PT'S DOCTOR HEALTY CONNECTIONS. [facility] WEBSITE MESSAGE STATES THAT THE ASSIGNMENT CAN TAKE UP TO THREE DAYS TO TAKE AFFECT AND TO CALL [facility] IF PT NEEDS TO SEE PRIMARY CARE SOONER. CM NOTIFIED PT WHO WILL CALL HIMSELF. CM CALLED [employer], THREE MORE TIMES, AFTER VERY LENGHTY HOLDS, THE LINE WAS DISCONNECTED TWICE AND THE THIRD TIME WAS FOR APPROXIMATELY 4O MINUTES WITH ONLY PIANO MUSIC AND NO JEWELRY ENAMELER. CM WILL CALL [employer] AGAIN TOMORROW TO FIND OUT IF THE PCP ASSIGNMENT WENT THROUGH THE [facility] WEBSITE. NAHID BARRIOS, CASE MANAGEMENT DCP- Discharge Planning Updated by [id number]: Karoline Jamil on 03/31/18 1:[address] Patient Name: ANNAMARIE DESAI Admission Status: ER Accout number: [id number] Admission Date: 03-30-2018 : 1995 Admission Diagnosis: Attending: AUSTEN SINGH Current LOS: 1 Anticipated DC Date: Planned Disposition: Primary Insurance: [place]ID [place] Discharge Planning Comments: CM MET WITH PATIENT AND HIS AUNT RODRICK STEWART WHO HE LIVES WITH ABOUT DC PLANNING NEEDS. STATES HE JUST GOT ON MEDICAID AND DOESN'T HAVE A PCP YET, IS HOPING TO GET IN WITH DR. STONE. PATIENT STATES HAS WALKER AND WC AT HOME BUT NEEDS A SHOWER CHAIR. ALSO STATES NEEDS HH. PATIENT CHOICE FORM COMPLETED, PATIENT [facility]OSE [facility] 1ST, [facility] 2ND. CHOSE [facility] 1ST AND [facility] 2ND. CM SPOKE WITH DR. CONDON AND SHE WANTS US TO HELP HIM TO GET LOVENOX 80MG BID FOR 10 DOSES. I CALLED [facility] [address] BUT THEY COULDN'T TELL ME IF IT WAS COVERED BY MEDICAID UNTIL THEY HAD THE PRESCRIPTION. HIS AUNT RODRICK SAID IF WE NEEDED TO TALK TO HER TOMORROW TO CALL HER ON HER WORK PHONE AT [phone], AND HER CELL IS [phone]. ALSO, PHARMACY TOLD ME MEDICAID COULD TELL ME IF ITS COVERED BUT THEY ARE CLOSED TODAY. CM TO FOLLOW AND ASSIST NEEDED WITH DC PLANNING/NEEDS. UNSURE OF HIS DC DATE. Burial Needs Salesperson: Karoline Jamil DCPIA - Discharge Planning Initial Assessment Updated by [id number]: Karoline Jamil on 03/31/18 1:49 pm * Is the patient Alert and Oriented? Yes * PCP NONE * Pharmacy [facility] [address] * Preadmission Environment Home with Family * ADLs Independent * Equipment Walker Wheelchair * List name and contact numbers for known caregivers / representatives who currently or will assist patient after discharge: AUNT BARRETT, OR HER WORK NUMBER IS [phone] * Verbal permission to speak to the caregivers and representatives has been obtained from the patient. Yes * Community resources currently utilized None * Additional services required to return to the preadmission environment? Yes * Can the patient safely return to the preadmission environment? Yes * Has this patient been hospitalized within the prior 30 days at any hospital? No Coverage Notice Reviewer: [id number] Laura Jamil Notice Issued Date-Time: 03/31/2018 14:11 Notice Type: Patient Choice Letter Notice Delivered To: Family Member Relationship to Patient: Aunt Certified Health Education Specialist Name: RODRICK STEWART Delivery Method: HAND - Hand Delivered Sweta Days: Prior Verbal Notification: Recipient Understood Notice: Yes Recipient Signature: Yes Med Rec Note Co-signed by Attending: Coverage Notice Comment: [facility], [facility] HOME PATIENT. Last DP export: 04/02/18 11:12 a Patient Name: ANNAMARIE DESAI Page [phone] at 1220 All edits/amendments must be made on the electronic document DICTATION DATE: 04/02/181218 SYSTEMS APPLICATIONS PROGRAMMING LEAD: BANG 04/02/181218 RPT#: [id number] DC DATE: STATUS: ADM IN [facility] [address] [place] [address] END OF REPORT
--- NOTE | 2018-04-02 12:28 | MORECARE ---
CASE MANAGEMENT DISCHARGE SUMMARY PATIENT: ANNAMARIE DESAI UNIT: [id number] ADM DATE: 03/30/18 AGE: 23 : [birth year] SEX: M ROOM/BED: D.2113 AUTHOR: JUANIS,DOC PHYSICIAN: REFERRING PHYSICIAN: AUSTEN SINGH MD DATE OF SERVICE: 04/02/18 Discharge Plan Patient Name: ANNAMARIE DESAI Facility: [facility]:[place] : 1995 Planned Disposition: Home Anticipated Discharge Date: 04/02/18 Discharge Date: Expected LOS: 3 Initial Reviewer: [id number] Initial Review Date: 03/31/2018 Generated: 04/02/18 1:27 pm Comments DCP- Discharge Planning Updated by [id number]: Nahid Barrios on 04/02/18 11:[address] Patient Name: ANNAMARIE DESAI Encounter No: [id number] : 1995 Primary Insurance: MEDICAID [place] Anticipated DC Date: 04-02-2018 Planned Disposition: Home DCP follow-up note: CM CALLED [employer], , SPOKE TO HIEN WHO INFORMED CM THAT EVEN WITH CM ASSISTING WITH ASSIGNING THEM PRIMARY ON LINE, MEDICAID WILL TAKE 30-45 DAYS TO PROCESS THIS FOR IT TO BECOME ACTIVE FOR [employer] TO SEE PT. HIEN ADVISED THAT CM WILL HAVE TO CALL [employer] AND SPEAK TO [facility] TO GET THIS ASSIGNMENT MADE ACTIVE. CM CALLED [employer], , WAS ON HOLD FOR GREATER THAN TWO HOURS AND FINALLY SPOKE TO DOUGIE. LUISANA MET WITH PT IN ROOM WITH DOUGIE OF [employer] ON THE PHONE. [employer] ASSIGNMENT MADE ACTIVE. DOUGIE ADVISED THAT HOLD TIMES OF TWO HOURS ARE COMMON WITH THEIR AGENCY. PT REPORTS HE WANTS TO GO HOME; CM DISCUSSED MEDICAL EQUIPMENT AND HOME HEALTH. PT AND HIS GIRLFRIEND REPORT THAT SHE IS ABLE TO GIVE PT LOVENOX SHOTS AND ASSIST WITH TRANSPORT TO THE DOCTOR. PT DENIES FURHTER NEEDS. CM CALLED [employer], , SPOKE TO HIEN AND MADE APPOINTMENT FOR PT TO SEE MARKO DUNLAP ON 04-04-18 AT 1000 AM. PT NOTIFIED WHO IS IN AGREEMENT WITH THIS APPOINTMENT. CM ADVISED PT THAT [facility] ARE CLOSED ON FRIDAYS. CM PROVIDED PT WITH [facility] CONTACT INFORMATION. CM FAXED HOSPITAL UDPATE TO [facility] AT [phone]. CM SPOKE TO CAMILO FARMER WHO ADVISED THAT LOVENOX REQUIRES PRIOR AUTHORIZATION FOR MEDICAID. CAMILO FARMER COMPLETED PRIOR AUTH LETTER FOR LOVENOX, PROVIDED TO DR. ZAPATA FOR SIGNATURE. CM NOTIFED MARKO JOHNSTON. CM WAITING ON LOVENOX PRIOR AUTHORIZATION FROM MEDICAID TO BE APPROVED. PT HAS PRIMARY CARE DOCTOR APPOINTMENT WITH MARKO DUNLAP AT [facility], 04-04-18 AT 1000AM. Nahid Barrios, CASE MANAGEMENT DCP- Discharge Planning Updated by [id number]: Nahid Barrios on 04/01/18 3:[address] Patient Name: ANNAMARIE DESAI Encounter No: [id number] : 1995 Primary Insurance: MEDICAID [facility] DC Date: Planned Disposition: External Planned Provider: : DCP follow-up note: CM RECEIVED ORDER TO SEE IF PT CAN BE SEEN AT [facility] FOR LAB DRAWS, PRIMARY CARE AND COUMADIN MONITORING. CM CALLED [employer], LEFT DETAILED MESSAGE FOR [facility] OF REFERRALS DEPARTMENT AT [phone]. CM WAITING RETURN CALL FROM [facility] [employer] [facility] [place]. Nahid Barrios, CASE MANAGEMENT Appended by Nahid Barrios on 04/01/2018 16:48 HYDRAULIC HAMMER OPERATOR: CM CALLED [facility], , SPOKE TO RECEPTIONISTS [facility] DID NOT RETURN CM CALL; RECEPTIONISTS INFORMED CM THAT PT WILL NEED TO HAVE [employer] CONNECTIONS CLINIC ASSIGNED BY DEPARTMENT OF HUMAN SERVICES BEFORE ANY ARRANGEMENTS CAN BE MADE WITH THEM. CM CALLED [employer], . AFTER VERY LENGHTY HOLD, THE LINE WAS DISCONNECTED. CM MET WITH PT IN ROOM, PROVIDED UPDATE, CALLED [employer], ; AFTER VERY LENGHTY HOLD, THE LINE WAS DISCONNECTED.CM WENT ONLINE TO [employer] AND ASSIGNED PT'S DOCTOR HEALTY CONNECTIONS. [place] [employer] [facility] WEBSITE MESSAGE STATES THAT THE ASSIGNMENT CAN TAKE UP TO THREE DAYS TO TAKE AFFECT AND [facility] IF PT NEEDS TO SEE PRIMARY CARE SOONER. CM NOTIFIED PT WHO WILL CALL HIMSELF. CM CALLED [employer], THREE MORE TIMES, AFTER VERY LENGHTY HOLDS, THE LINE WAS DISCONNECTED TWICE AND THE THIRD TIME WAS FOR APPROXIMATELY 4O MINUTES WITH ONLY PIANO MUSIC AND NO SHELLFISH DREDGE OPERATOR. CM WILL CALL [employer] AGAIN TOMORROW TO FIND OUT IF THE PCP ASSIGNMENT WENT THROUGH THE [facility] CARE WEBSITE. NAHID BARRIOS, CASE MANAGEMENT DCP- Discharge Planning Updated by [id number]: Karoline Jamil on 03/31/18 1:[address] Patient Name: ANNAMARIE DESAI Admission Status: ER Accout number: [id number] Admission Date: 03-30-2018 : 1995 Admission Diagnosis: Attending: AUSTEN SINGH Current LOS: 1 Anticipated DC Date: Planned Disposition: Primary Insurance: MEDICAID [place] Discharge Planning Comments: CM MET WITH PATIENT AND HIS AUNT RODRICK STEWART WHO HE LIVES WITH ABOUT DC PLANNING NEEDS. STATES HE JUST GOT ON MEDICAID AND DOESN'T HAVE A PCP YET, IS HOPING TO GET IN WITH DR. STONE. PATIENT STATES HAS WALKER AND WC AT HOME BUT NEEDS A SHOWER CHAIR. ALSO STATES NEEDS HH. PATIENT CHOICE FORM COMPLETED, [facility]IENT [facility]OSE [facility] 1ST, [facility] 2ND. CHOSE [facility] 1ST AND [facility] 2ND. CM SPOKE WITH DR. CONDON AND SHE WANTS US TO HELP HIM TO GET LOVENOX 80MG BID FOR 10 DOSES. I CALLED [employer] [address] BUT THEY COULDN'T TELL ME IF IT WAS COVERED BY MEDICAID UNTIL THEY HAD THE PRESCRIPTION. HIS AUNT RODRICK SAID IF WE NEEDED TO TALK TO HER TOMORROW TO CALL HER ON HER WORK PHONE AT [phone], AND HER CELL IS [phone]. ALSO, PHARMACY TOLD ME MEDICAID COULD TELL ME IF ITS COVERED BUT THEY ARE CLOSED TODAY. CM TO FOLLOW AND ASSIST NEEDED WITH DC PLANNING/NEEDS. UNSURE OF HIS DC DATE. Coil Finisher: Karoline Jamil DCPIA - Discharge Planning Initial Assessment Updated by [id number]: Karoline Jamil on 03/31/18 1:49 pm * Is the patient Alert and Oriented? Yes * PCP NONE * Pharmacy [facility] [address] * Preadmission Environment Home with Family * ADLs Independent * Equipment Walker Wheelchair * List name and contact numbers for known caregivers / representatives who currently or will assist patient after discharge: AUNT BARRETT, OR HER WORK NUMBER IS [phone] * Verbal permission to speak to the caregivers and representatives has been obtained from the patient. Yes * Community resources currently utilized None * Additional services required to return to the preadmission environment? Yes * Can the patient safely return to the preadmission environment? Yes * Has this patient been hospitalized within the prior 30 days at any hospital? No Coverage Notice Reviewer: [id number] Laura Jamil Notice Issued Date-Time: 03/31/2018 14:11 Notice Type: Patient Choice Letter Notice Delivered To: Family Member Relationship to Patient: Aunt Postmaster Name: RODRICK STEWART Delivery Method: HAND - Hand Delivered Sweta Days: Prior Verbal Notification: Recipient Understood Notice: Yes Recipient Signature: Yes Med Rec Note Co-signed by Attending: Coverage Notice Comment: [facility], [facility] PATIENT. Last DP export: 04/02/18 11:20 a Patient Name: ANNAMARIE DESAI Page [id number] at 1228 All edits/amendments must be made on the electronic document DICTATION DATE: 04/02/18 1227 HAND ROUNDER: BANG 04/02/18 1227 RPT#: [id number] DC DATE: STATUS: ADM IN [facility] [address] [place] [address] END OF REPORT
--- NOTE | 2018-04-02 12:35 | MORECARE ---
CASE MANAGEMENT DISCHARGE SUMMARY PATIENT: ANNAMARIE DESAI UNIT: [id number] ADM DATE: 03/30/18 AGE: 23 : [birth year] SEX: M ROOM/BED: D.2113 AUTHOR: JUANIS,DOC PHYSICIAN: REFERRING PHYSICIAN: AUSTEN SINGH MD DATE OF SERVICE: 04/02/18 Discharge Plan Patient Name: ANNAMARIE DESAI Facility: [facility]:[place] : 1995 Planned Disposition: Home Anticipated Discharge Date: 04/02/18 Discharge Date: Expected LOS: 3 Initial Reviewer: [id number] Initial Review Date: 03/31/2018 Generated: 04/02/18 1:35 pm Comments DCP- Discharge Planning Updated by [email or web address]: Nahid Barrios on 04/02/18 11:[address] Patient Name: ANNAMARIE DESAI Encounter No: [id number] : 1995 Primary Insurance: [place] Anticipated DC Date: 04-02-2018 Planned Disposition: Home DCP follow-up note: CM CALLED [employer], , SPOKE TO HIEN WHO INFORMED CM THAT EVEN WITH CM ASSISTING WITH ASSIGNING THEM PRIMARY ON LINE, MEDICAID WILL TAKE 30-45 DAYS TO PROCESS THIS FOR IT TO BECOME ACTIVE FOR [employer] TO SEE PT. HIEN ADVISED THAT CM WILL HAVE TO CALL [employer] AND SPEAK TO [facility] TO GET THIS ASSIGNMENT MADE ACTIVE. CM CALLED [employer], , WAS ON HOLD FOR GREATER THAN TWO HOURS AND FINALLY SPOKE TO DOUGIE. LUISANA MET WITH PT IN ROOM WITH DOUGIE OF [employer] ON THE PHONE. [employer] ASSIGNMENT MADE ACTIVE. DOUGIE ADVISED THAT HOLD TIMES OF TWO HOURS ARE COMMON WITH THEIR AGENCY. PT REPORTS HE WANTS TO GO HOME; CM DISCUSSED MEDICAL EQUIPMENT AND HOME HEALTH. PT AND HIS GIRLFRIEND REPORT THAT SHE IS ABLE TO GIVE PT LOVENOX SHOTS AND ASSIST WITH TRANSPORT TO THE DOCTOR. PT DENIES FURHTER NEEDS. CM CALLED [employer], , SPOKE TO HIEN AND MADE APPOINTMENT FOR PT TO SEE MARKO DUNLAP ON 04-04-18 AT 1000 AM. PT NOTIFIED WHO IS IN AGREEMENT WITH THIS APPOINTMENT. CM ADVISED PT THAT HEALTHY CONNECTIONS ARE CLOSED ON FRIDAYS. CM PROVIDED PT WITH [facility] CONTACT INFORMATION. CM FAXED HOSPITAL UDPATE TO [facility] AT [phone]. CM SPOKE TO CAMILO FARMER WHO ADVISED THAT LOVENOX REQUIRES PRIOR AUTHORIZATION FOR MEDICAID. CAMILO FARMER COMPLETED PRIOR AUTH LETTER FOR LOVENOX, PROVIDED TO DR. ZAPATA FOR SIGNATURE. CM NOTIFED MARKO JOHNSTON. CM WAITING ON LOVENOX PRIOR AUTHORIZATION FROM MEDICAID TO BE APPROVED. PT HAS PRIMARY CARE DOCTOR APPOINTMENT WITH MARKO DUNLAP AT [facility], 04-04-18 AT 1000AM. Nahid Barrios, CASE MANAGEMENT DCP- Discharge Planning Updated by [id number]: Nahid Barrios on 04/01/18 3:[address] Patient Name: ANNAMARIE DESAI Encounter No: [id number] : 1995 Primary Insurance: MEDICAID [facility] DC Date: Planned Disposition: External Planned Provider: : DCP follow-up note: CM RECEIVED ORDER TO SEE IF PT CAN BE SEEN AT [facility] FOR LAB DRAWS, PRIMARY CARE AND COUMADIN MONITORING. CM CALLED [employer], LEFT DETAILED MESSAGE FOR [facility] OF REFERRALS DEPARTMENT AT [phone]. CM WAITING RETURN CALL FROM [facility] [employer] [facility] [place]. Nahid Barrios, CASE MANAGEMENT Appended by Nahid Barrios on 04/01/2018 16:48 RUSSIAN HISTORY PROFESSOR: CM CALLED [facility], , SPOKE TO RE[facility]IONISTS JUANY DID NOT RETURN CM CALL; RE[facility]ISTS INFORMED CM THAT PT WILL NEED TO HAVE [employer] CONNECTIONS CLINIC ASSIGNED BY DEPARTMENT OF HUMAN SERVICES BEFORE ANY ARRANGEMENTS CAN BE MADE WITH THEM. CM CALLED [employer], . AFTER VERY LENGHTY HOLD, THE LINE WAS DISCONNECTED. CM MET WITH PT IN ROOM, PROVIDED UPDATE, CALLED [employer], ; AFTER VERY LENGHTY HOLD, THE LINE WAS DISCONNECTED.CM WENT ONLINE TO [employer] AND ASSIGNED PT'S DOCTOR HEALTY CONNECTIONS. [place] [employer] [facility] WEBS[facility] MESSAGE STATES THAT THE ASSIGNMENT CAN TAKE UP TO THREE DAYS TO TAKE AFFECT AND TO [facility] IF PT NEEDS TO SEE PRIMARY CARE SOONER. CM NOTIFIED PT WHO WILL CALL HIMSELF. CM CALLED [employer], THREE MORE TIMES, AFTER VERY LENGHTY HOLDS, THE LINE WAS DISCONNECTED TWICE AND THE THIRD TIME WAS FOR APPROXIMATELY 4O MINUTES WITH ONLY PIANO MUSIC AND NO RECREATIONAL COUNSELOR. CM WILL CALL [employer] AGAIN TOMORROW TO FIND OUT IF THE PCP ASSIGNMENT WENT THROUGH THE [facility] CARE WEBSITE. NAHID BARRIOS, CASE MANAGEMENT DCP- Discharge Planning Updated by [id number]: Karoline Jamil on 03/31/18 1:[address] Patient Name: ANNAMARIE DESAI Admission Status: ER Accout number: [id number] Admission Date: 03-30-2018 : 1995 Admission Diagnosis: Attending: AUSTEN SINGH Current LOS: 1 Anticipated DC Date: Planned Disposition: Primary Insurance: [place]ID [place] Discharge Planning Comments: CM MET WITH PATIENT AND HIS AUNT RODRICK STEWART WHO HE LIVES WITH ABOUT DC PLANNING NEEDS. STATES HE JUST GOT ON MEDICAID AND DOESN'T HAVE A PCP YET, IS HOPING TO GET IN WITH DR. STONE. PATIENT STATES HAS WALKER AND WC AT HOME BUT NEEDS A SHOWER CHAIR. ALSO STATES NEEDS HH. PATIENT CHOICE FORM COMPLETED, PATIENT CHOSE [facility] 1ST, [facility] 2ND. CHOSE [facility] 1ST AND [facility] 2ND. CM SPOKE WITH DR. CONDON AND SHE WANTS US TO HELP HIM TO GET LOVENOX 80MG BID FOR 10 DOSES. I CALLED [employer] [facility] [address] BUT THEY COULDN'T TELL ME IF IT WAS COVERED BY MEDICAID UNTIL THEY HAD THE PRESCRIPTION. HIS AUNT RODRICK SAID IF WE NEEDED TO TALK TO HER TOMORROW TO CALL HER ON HER WORK PHONE AT [phone], AND HER CELL IS [phone]. ALSO, PHARMACY TOLD ME MEDICAID COULD TELL ME IF ITS COVERED BUT THEY ARE CLOSED TODAY. CM TO FOLLOW AND ASSIST NEEDED WITH DC PLANNING/NEEDS. UNSURE OF HIS DC DATE. Property Clerk: Karoline Jamil DCPIA - Discharge Planning Initial Assessment Updated by [id number]: Karoline Jamil on 03/31/18 1:49 pm * Is the patient Alert and Oriented? Yes * PCP NONE * Pharmacy [facility] [address] * Preadmission Environment Home with Family * ADLs Independent * Equipment Walker Wheelchair * List name and contact numbers for known caregivers / representatives who currently or will assist patient after discharge: AUNT BARRETT, OR HER WORK NUMBER IS [phone] * Verbal permission to speak to the caregivers and representatives has been obtained from the patient. Yes * Community resources currently utilized None * Additional services required to return to the preadmission environment? Yes * Can the patient safely return to the preadmission environment? Yes * Has this patient been hospitalized within the prior 30 days at any hospital? No External Providers External Provider: OTHER-OTHER Next Contact Date: 04/02/2018 Service Request Date: Service Type: Resolution: Reviewer: Comments: Coverage Notice Reviewer: [id number] - Karoline Loulou Notice Issued Date-Time: 03/31/2018 14:11 Notice Type: Patient Choice Letter Notice Delivered To: Family Member Relationship to Patient: Aunt Flexographic Press Helper Name: RODRICK STEWART Delivery Method: HAND - Hand Delivered Sweta Days: Prior Verbal Notification: Recipient Understood Notice: Yes Recipient Signature: Yes Med Rec Note Co-signed by Attending: Coverage Notice Comment: [facility] PATIENT. Last DP export: 04/02/18 11:27 a Patient Name: ANNAMARIE DESAI Page [phone] at 1235 All edits/amendments must be made on the electronic document DICTATION DATE: 04/02/18 1235 ELECTRONICS ENGINEER: BANG 04/02/18 1235 RPT#: [id number] DC DATE: STATUS: ADM IN [facility] [address] [place] [address] END OF REPORT
[2018-04-02] MEDS ORDERED: LOVENOX INJ100 MG/ML SC (14:26)
[2018-04-02] MEDS ORDERED: COUMADIN10 MG PO (14:27)
--- NOTE | 2018-04-02 16:08 | NUR ---
20 GAUGE IV REMOVED FROM RIGHT WRIST. NO BLEEDING FROM SITE. 2X2 GAUZE APPLIED AND SECURED WITH TAPE. TOLERATED IV REMOVAL WELL. 1550 DISCHARGE INSTRUCTIONS PROVIDED TO PATIENT AND HIS GIRLFRIEND WHO IS GOING TO GIVE LOVENOX INJECTIONS. BOTH PATIENT AND GIRLFRIEND VERBALIZED UNDERSTANDING OF ALL INSTRUCTIONS PROVIDED. 5912 PATIENT LEFT UNIT VIA WHEELCHAIR WITH ALL PERSONAL BELONGINGS. PATEINT DISCHARGED TO HOME WITH HIS GIRLFRIEND AND HIS AUNT. NO DISTRESS UPON LEAVING UNIT.
--- NOTE | 2018-04-03 09:04 | MORECARE ---
CASE MANAGEMENT DISCHARGE SUMMARY PATIENT: ANNAMARIE DESAI UNIT: [id number] ADM DATE: 03/30/18 AGE: 23 : [birth year] SEX: M ROOM/BED: D.2113 AUTHOR: JUANIS,DOC PHYSICIAN: REFERRING PHYSICIAN: AUSTEN SINGH MD DATE OF SERVICE: 04/03/18 Discharge Plan Patient Name: ANNAMARIE DESAI Facility: [facility]:[place] : 1995 Planned Disposition: Home Anticipated Discharge Date: 04/02/18 Discharge Date: 04/02/2018 Expected LOS: 3 Initial Reviewer: [id number] Initial Review Date: 03/31/2018 Generated: 04/03/18 10:03 am DCP- Discharge Planning Updated by [email or web address]: Nahid Barrios on 04/02/18 11:[address] Patient Name: ANNAMARIE DESAI Encounter No: [id number] : 1995 Primary Insurance: MEDICAID [place] Anticipated DC Date: 04-02-2018 Planned Disposition: Home DCP follow-up note: CM CALLED [employer], , SPOKE TO HIEN WHO INFORMED CM THAT EVEN WITH CM ASSISTING WITH ASSIGNING THEM PRIMARY ON LINE, MEDICAID WILL TAKE 30-45 DAYS TO PROCESS THIS FOR IT TO BECOME ACTIVE FOR [employer] TO SEE PT. HIEN ADVISED THAT CM WILL HAVE TO CALL [facility] AND SPEAK TO [facility] TO GET THIS ASSIGNMENT MADE ACTIVE. CM CALLED [employer], , WAS ON HOLD FOR GREATER THAN TWO HOURS AND FINALLY SPOKE TO DOUGIE. CM MET WITH PT IN ROOM WITH DOUGIE OF [facility] ON THE PHONE. [employer] ASSIGNMENT MADE ACTIVE. DOUGIE ADVISED THAT HOLD TIMES OF TWO HOURS ARE COMMON WITH THEIR AGENCY. PT REPORTS HE WANTS TO GO HOME; CM DISCUSSED MEDICAL EQUIPMENT AND HOME HEALTH. PT AND HIS GIRLFRIEND REPORT THAT SHE IS ABLE TO GIVE PT LOVENOX SHOTS AND ASSIST WITH TRANSPORT TO THE DOCTOR. PT DENIES FURHTER NEEDS. CM CALLED [employer], , SPOKE TO HIEN AND MADE APPOINTMENT FOR PT TO SEE MARKO DUNLAP ON 04-04-18 AT 1000 AM. PT NOTIFIED WHO IS IN AGREEMENT WITH THIS APPOINTMENT. CM ADVISED PT THAT HEALTHY CONNECTIONS ARE CLOSED ON FRIDAYS. CM PROVIDED PT WITH [facility] CONTACT INFORMATION. CM FAXED HOSPITAL UDPATE TO [facility] AT [phone]. CM SPOKE TO CAMILO FARMER WHO ADVISED THAT LOVENOX REQUIRES PRIOR AUTHORIZATION FOR MEDICAID. CAMIL[employer] FARMER COMPLETED PRIOR AUTH LETTER FOR LOVENOX, PROVIDED TO DR. ZAPATA FOR SIGNATURE. CM NOTIFED MARKO JOHNSTON. CM WAITING ON LOVENOX PRIOR AUTHORIZATION FROM MEDICAID TO BE APPROVED. PT HAS PRIMARY CARE DOCTOR APPOINTMENT WITH MARKO DUNLAP AT [facility], 04-04-18 AT 1000AM. Nahid Barrios, CASE MANAGEMENT DCP- Discharge Planning Updated by [id number]: Nahid Barrios on 04/01/18 3:[address] Patient Name: ANNAMARIE DESAI Encounter No: [id number] : 1995 Primary Insurance: MEDICAID [facility] DC Date: Planned Disposition: External Planned Provider: : DCP follow-up note: CM RECEIVED ORDER TO SEE IF PT CAN BE SEEN AT [facility] FOR LAB DRAWS, PRIMARY CARE AND COUMADIN MONITORING. CM CALLED [employer], LEFT DETAILED MESSAGE FOR [facility] OF REFERRALS DEPARTMENT AT [phone]. CM WAITING RETURN CALL FROM [facility] [place]. Nahid Barrios, CASE MANAGEMENT Appended by Nahid Barrios on 04/01/2018 16:48 COMMAND AND CONTROL SPECIALIST: CM CALLED [facility], , SPOKE TO RECEPTIONISTS JUANY DID NOT RETURN CM CALL; RE[facility]ISTS INFORMED CM THAT PT WILL NEED TO HAVE [employer] CONNECTIONS CLINIC ASSIGNED BY DEPARTMENT OF HUMAN SERVICES BEFORE ANY ARRANGEMENTS CAN BE MADE WITH THEM. CM CALLED [employer], . AFTER VERY LENGHTY HOLD, THE LINE WAS DISCONNECTED. CM MET WITH PT IN ROOM, PROVIDED UPDATE, CALLED [employer], ; AFTER VERY LENGHTY HOLD, THE LINE WAS DISCONNECTED.CM WENT ONLINE TO [facility] AND ASSIGNED PT'S DOCTOR HEALTY CONNECTIONS. [place] [employer] [facility] WEBSITE MESSAGE STATES THAT THE ASSIGNMENT CAN TAKE UP TO THREE DAYS TO TAKE AFFECT AND TO CALL [employer] [facility] IF PT NEEDS TO SEE PRIMARY CARE SOONER. CM NOTIFIED PT WHO WILL CALL HIMSELF. CM CALLED [employer], THREE MORE TIMES, AFTER VERY LENGHTY HOLDS, THE LINE WAS DISCONNECTED TWICE AND THE THIRD TIME WAS FOR APPROXIMATELY 4O MINUTES WITH ONLY PIANO MUSIC AND NO FIRE EXTINGUISHER INSTALLER. CM WILL CALL [employer] AGAIN TOMORROW TO FIND OUT IF THE PCP ASSIGNMENT WENT THROUGH THE [facility] CARE WEBSITE. NAHID BARRIOS, CASE MANAGEMENT DCP- Discharge Planning Updated by [id number]: Karoline Jamil on 03/31/18 1:[address] Patient Name: ANNAMARIE DESAI Admission Status: ER Accout number: [id number] Admission Date: 03-30-2018 : 1995 Admission Diagnosis: Attending: AUSTEN SINGH Current LOS: 1 Anticipated DC Date: Planned Disposition: Primary Insurance: MEDICAID [place] Discharge Planning Comments: CM MET WITH PATIENT AND HIS AUNT RODRICK STEWART WHO HE LIVES WITH ABOUT DC PLANNING NEEDS. STATES HE JUST GOT ON MEDICAID AND DOESN'T HAVE A PCP YET, IS HOPING TO GET IN WITH DR. STONE. PATIENT STATES HAS WALKER AND WC AT HOME BUT NEEDS A SHOWER CHAIR. ALSO STATES NEEDS HH. PATIENT CHOICE FORM COMPLETED, [facility]IENT [facility]OSE [facility] 1ST, [facility] 2ND. CHOSE [facility] 1ST AND [facility] 2ND. CM SPOKE WITH DR. CONDON AND SHE WANTS US TO HELP HIM TO GET LOVENOX 80MG BID FOR 10 DOSES. I CALLED [employer] [address] BUT THEY COULDN'T TELL ME IF IT WAS COVERED BY MEDICAID UNTIL THEY HAD THE PRESCRIPTION. HIS AUNT RODRICK SAID IF WE NEEDED TO TALK TO HER TOMORROW TO CALL HER ON HER WORK PHONE AT [phone], AND HER CELL IS [phone]. ALSO, PHARMACY TOLD ME MEDICAID COULD TELL ME IF ITS COVERED BUT THEY ARE CLOSED TODAY. CM TO FOLLOW AND ASSIST NEEDED WITH DC PLANNING/NEEDS. UNSURE OF HIS DC DATE. Emergency Management Program Specialist: Karoline Jamil DCPIA - Discharge Planning Initial Assessment Updated by [id number]: Karoline Jamil on 03/31/18 1:49 pm * Is the patient Alert and Oriented? Yes * PCP NONE * Pharmacy [facility] [address] * Preadmission Environment Home with Family * ADLs Independent * Equipment Walker Wheelchair * List name and contact numbers for known caregivers / representatives who currently or will assist patient after discharge: AUNT BARRETT, OR HER WORK NUMBER IS [phone] * Verbal permission to speak to the caregivers and representatives has been obtained from the patient. Yes * Community resources currently utilized None * Additional services required to return to the preadmission environment? Yes * Can the patient safely return to the preadmission environment? Yes * Has this patient been hospitalized within the prior 30 days at any hospital? No Coverage Notice Reviewer: [email or web address] Laura Jamil Notice Issued Date-Time: 03/31/2018 14:11 Notice Type: Patient Choice Letter Notice Delivered To: Family Member Relationship to Patient: Aunt Structural Steel Painter Name: RODRICK STEWART Delivery Method: HAND - Hand Delivered Sweta Days: Prior Verbal Notification: Recipient Understood Notice: Yes Recipient Signature: Yes Med Rec Note Co-signed by Attending: Coverage Notice Comment: [facility]OWER [facility]AIR - [facility] PATIENT. Last DP export: 04/02/18 11:35 a Patient Name: ANNAMARIE DESAI Page 11388 at 0904 All edits/amendments must be made on the electronic document DICTATION DATE: 04/03/18902 HARBOUR MASTER: BANG 04/03/18902 RPT#: [id number] DC DATE:04/02/18 STATUS: DIS IN [facility] [address] [place] [address] END OF REPORT
[2018-04-04 07:26] LABS: LUPUS - INTERPRETATION Comment: (()); LUPUS - THROMBIN TIME 17.1 sec (0.0-23.0); PTT-LA 47.8 sec (0.0-51.9)
[2018-04-04 16:13] LABS: FACTOR II DNA ANALYSIS Negative (())
== END 2018-04-02 16:08 | disposition home or self-care (01) | DRG 301 ==
LOC: D.ER 22:14 → D.EDHOLD 23:58 → D.M2 23:58 → OBSVTIME 23:58 → D.M2 03-30 00:07
PROVIDERS: Family Medicine; Family Medicine Adult Medicine; Internal Medicine Hematology & Oncology; Internal Medicine Nephrology; ADMIT Family Medicine
DX: I82.431 Acute embolism and thrombosis of right popliteal vein (principal); I82.441 Acute embolism and thrombosis of right tibial vein; Z79.01 Long term (current) use of anticoagulants; F17.220 Nicotine dependence, chewing tobacco, uncomplicated

== ENCOUNTER 2018-04-10 21:19 | Emergency (ER) | payer SELFPAY ==
[~2018-04-10] VITALS: Ht 170.2 cm; Wt 81.8 kg
[~2018-04-10 21:19] MED LIST changes: +COUMADIN10 MG PO; +ELIQUIS5 MG PO; +LOVENOX INJ100 MG/ML SC
[2018-04-10 21:41] VITALS: Ht 170.2 cm; Wt 81.8 kg
[2018-04-10 22:37] LABS: BASOPHILS 0.4 % (0-2); EOSINOPHILS 2.4 % (0-7); HEMATOCRIT 42.5 % (42.0-54.0); IMMATURE GRANULOCYTES 0.1 % (0-5); LYMPHOCYTES 36.6 % (15-50); MCH 30.9 pg (26.0-34.0); MCHC 35.3 g/dL (31.0-37.0); MCV 87.6 fL (80.0-100.0); MEAN PLATELET VOLUME 9.6 fL (7.4-10.4); MONOCYTES 8.6 % (2-11); NEUTROPHILS 51.9 % (40-80); PLATELET COUNT 308 10x3/uL (130-400); RBC 4.85 10x6/uL (4.20-6.10); RDW 12.3 % (11.5-14.5)
[2018-04-10 22:44] LABS: APTT 40.9 SECONDS (22.8-39.4); INR 1.87 (0.85-1.17); PROTIME 20.9 SECONDS (11.6-15.0)
[2018-04-10 22:45] LABS: D-DIMER-QUANTITATIVE < 0.27 ug/mLFEU (0.20-0.54)
[2018-04-10 23:00] LABS: ALBUMIN 3.7 g/dL (3.4-5.0); ALKALINE PHOSPHATASE 97 U/L (46-116); ALT (SGPT) 64 U/L (10-68); BILIRUBIN - TOTAL 0.62 mg/dL (0.2-1.3); CALC OSMOLALITY 279 mosm/kg (275-300); CALCIUM 8.9 mg/dL (8.5-10.1); CARBON DIOXIDE 27.7 mmol/L (21.0-32.0); CHLORIDE - SERUM 103 mmol/L (98-107); CREATININE - SERUM 0.9 mg/dL (0.6-1.3); GLUCOSE 102 mg/dL (74-106); POTASSIUM - SERUM 4.1 mmol/L (3.5-5.1); PROTEIN - SERUM 7.5 g/dL (6.4-8.2); SODIUM 141 mmol/L (136-145); UREA NITROGEN 10 mg/dL (7-18); eGFR NON AFRICAN AMERICAN > 90 mL/min (90-120)
[2018-04-10] MEDS ORDERED: ULTRAM50 MG PO (23:31)
[2018-04-10 23:58] VITALS: BP 134/79
== END 2018-04-11 00:08 | disposition home or self-care (01) ==
LOC: D.ER 21:19
PROVIDERS: Family Medicine
DX: I82.4Z1 Acute embolism and thrombosis of unspecified deep veins of right distal lower extremity (principal); Z79.01 Long term (current) use of anticoagulants

== ENCOUNTER 2018-04-26 19:45 | Emergency (ER) | payer MEDICAID ==
[~2018-04-26] VITALS: Ht 170.2 cm; Wt 81.8 kg
[~2018-04-26 19:45] MED LIST changes: +ULTRAM50 MG PO
[2018-04-26 19:50] VITALS: Ht 170.2 cm; Wt 81.8 kg
[2018-04-26 20:12] LABS: BASOPHILS 0.4 % (0-2); EOSINOPHILS 2.9 % (0-7); HEMATOCRIT 44.7 % (42.0-54.0); IMMATURE GRANULOCYTES 0.1 % (0-5); LYMPHOCYTES 32.1 % (15-50); MCH 31.1 pg (26.0-34.0); MCHC 35.8 g/dL (31.0-37.0); MEAN PLATELET VOLUME 9.8 fL (7.4-10.4); MONOCYTES 8.8 % (2-11); NEUTROPHILS 55.7 % (40-80); PLATELET COUNT 302 10x3/uL (130-400); RBC 5.14 10x6/uL (4.20-6.10); RDW 12.4 % (11.5-14.5); WBC 9.2 10x3/uL (4.8-10.8)
[2018-04-26 20:25] LABS: APTT 48.5 SECONDS (22.8-39.4); INR 2.04 (0.85-1.17); PROTIME 22.4 SECONDS (11.6-15.0)
[2018-04-26 20:26] LABS: D-DIMER-QUANTITATIVE 0.41 ug/mLFEU (0.20-0.54)
[2018-04-26 20:32] LABS: ALBUMIN 3.7 g/dL (3.4-5.0); ALKALINE PHOSPHATASE 91 U/L (46-116); ALT (SGPT) 34 U/L (10-68); BILIRUBIN - TOTAL 0.47 mg/dL (0.2-1.3); CALC OSMOLALITY 278 mosm/kg (275-300); CALCIUM 8.6 mg/dL (8.5-10.1); CARBON DIOXIDE 25.7 mmol/L (21.0-32.0); CHLORIDE - SERUM 104 mmol/L (98-107); CREATININE - SERUM 0.8 mg/dL (0.6-1.3); GLUCOSE 104 mg/dL (74-106); POTASSIUM - SERUM 3.9 mmol/L (3.5-5.1); PROTEIN - SERUM 7.4 g/dL (6.4-8.2); SODIUM 139 mmol/L (136-145); UREA NITROGEN 15 mg/dL (7-18); eGFR NON AFRICAN AMERICAN > 90 mL/min (90-120)
[2018-04-26 21:25] VITALS: BP 135/80
== END 2018-04-26 21:25 | disposition home or self-care (01) ==
LOC: D.ER 19:45
PROVIDERS: Family Medicine
DX: I82.409 Acute embolism and thrombosis of unspecified deep veins of unspecified lower extremity (principal); Z79.01 Long term (current) use of anticoagulants

== ENCOUNTER 2019-06-07 06:27 | Emergency (ER) | payer MEDICAID ==
[~2019-06-07] VITALS: Ht 170.2 cm; Wt 86.2 kg
[2019-06-07 06:33] VITALS: Ht 170.2 cm; Wt 86.2 kg
[2019-06-07 07:07] LABS: BASOPHILS 0.4 % (0-2); HEMATOCRIT 48.1 % (42.0-54.0); HEMOGLOBIN 16.5 g/dL (13.5-17.5); IMMATURE GRANULOCYTES 0.4 % (0-5); LYMPHOCYTES 36.7 % (15-50); MCH 32.1 pg (26.0-34.0); MCHC 34.3 g/dL (31.0-37.0); MCV 93.6 fL (80.0-100.0); MEAN PLATELET VOLUME 9.4 fL (7.4-10.4); MONOCYTES 10.3 % (2-11); NEUTROPHILS 48.2 % (40-80); PLATELET COUNT 247 10x3/uL (130-400); RBC 5.14 10x6/uL (4.20-6.10); RDW 14.2 % (11.5-14.5); WBC 7.3 10x3/uL (4.8-10.8)
[2019-06-07 07:12] LABS: APTT 28.5 SECONDS (22.8-39.4); INR 0.87 (0.85-1.17); PROTIME 11.8 SECONDS (11.6-15.0)
[2019-06-07 07:13] LABS: CALC OSMOLALITY 278 mosm/kg (275-300); CHLORIDE - SERUM 103 mmol/L (98-107); CREATININE - SERUM 0.8 mg/dL (0.6-1.3); GLUCOSE 101 mg/dL (74-106); POTASSIUM - SERUM 3.7 mmol/L (3.5-5.1); SODIUM 140 mmol/L (136-145); UREA NITROGEN 12 mg/dL (7-18); eGFR NON AFRICAN AMERICAN > 90 mL/min (90-120)
[2019-06-07 07:29] LABS: ALBUMIN 3.6 g/dL (3.4-5.0); ALKALINE PHOSPHATASE 58 U/L (30-120); ALT (SGPT) 26 U/L (10-68); BILIRUBIN - TOTAL 0.89 mg/dL (0.2-1.3); CKMB 0.7 U/L (0.0-3.6); CREATINE KINASE 85 UL (21-232); PROTEIN - SERUM 7.4 g/dL (6.4-8.2); TROPONIN-I < 0.017 ng/mL (0.000-0.060)
[2019-06-07 07:50] LABS: BILIRUBIN NEGATIVE (NEGATIVE); EPITHELIAL CELLS OCC /hpf (0-5); GLUCOSE NEGATIVE (NEGATIVE); KETONE NEGATIVE (NEGATIVE); NITRITE NEGATIVE (NEGATIVE); RED CELLS - URINE RARE /hpf (0-5); SPECIFIC GRAVITY 1.015 (1.005-1.020); UROBILINOGEN NORMAL (NORMAL); WHITE CELLS - URINE 0-5 /hpf (NEGATIVE)
[2019-06-07 07:55] LABS: UDS - AMPHET NEGATIVE QUAL (NEGATIVE); UDS - BARB NEGATIVE QUAL (NEGATIVE); UDS - BENZO NEGATIVE QUAL (NEGATIVE); UDS - COCAINE NEGATIVE QUAL (NEGATIVE); UDS - OPIATE NEGATIVE QUAL (NEGATIVE); UDS - PCP NEGATIVE QUAL (NEGATIVE); UDS - THC NEGATIVE QUAL (NEGATIVE)
[2019-06-07 09:45] VITALS: BP 118/74
== END 2019-06-07 09:45 | disposition home or self-care (01) ==
LOC: D.ER 06:27
PROVIDERS: Family Medicine
DX: R20.0 Anesthesia of skin (principal); R00.2 Palpitations

== ENCOUNTER 2019-07-03 00:11 | Emergency (ER) | payer MEDICAID ==
[~2019-07-03] VITALS: Ht 170.2 cm; Wt 90.7 kg
[2019-07-03 00:14] VITALS: Ht 170.2 cm; Wt 90.7 kg
[2019-07-03] MEDS ORDERED: DICLOFENAC SODI50 MG PO (01:03)
[2019-07-03 01:16] VITALS: BP 152/91
== END 2019-07-03 01:16 | disposition home or self-care (01) ==
LOC: D.ER 00:11
DX: S20.219A Contusion of unspecified front wall of thorax, initial encounter (principal); S63.501A Unspecified sprain of right wrist, initial encounter; Y04.8XXA Assault by other bodily force, initial encounter; Y93.9 Activity, unspecified; Y92.9 Unspecified place or not applicable